=== PATIENT | male | born 1975 | race Caucasian/White ===

== ENCOUNTER → 2019-10-08 15:43 | Outpatient (CLI) | payer OTHER, SELFPAY ==
[2014-09-15 16:52] VITALS: BMI 27.2
[2019-10-08 17:48] LABS: Anion Gap 9 (5-15); BUN 15 mg/dL (7-18); BUN/Creat Ratio 11.5 RATIO (10-20); Calcium,Total 9.1 mg/dL (8.5-10.1); Chloride 103 mmol/L (98-107); Cholesterol 251 mg/dL (200); Creatinine, Serum 1.31 mg/dL (0.70-1.30); EST Glomerular Filtration Rate 63 mL/min (>60); Est Glom Filt Rate - Afr Amer 77 mL/min (>60); Glucose 66 mg/dL (74-106); High Density Lipoprotein 38 mg/dL; Potassium 3.9 mmol/L (3.5-5.1); Sodium Level 141 mmol/L (136-145); Triglycerides 177 mg/dL; Very Low Density Lipoprotein 35 mg/dL (5-40)
== END ==
PROVIDERS: Family Provider Family Medicine; PCP Family Medicine; Referring Provider Family Medicine; Visit Provider Family Medicine
DX: Z00.00 Encounter for general adult medical examination without abnormal findings (principal)
CPT/HCPCS: 36415; 80048; 80061

== ENCOUNTER 2024-12-02 23:52 | Emergency (ER) | payer OTHER, SELFPAY ==
[2024-12-02 23:53] VITALS: BP 175/108; PULSE 69; RESP 16; TEMP 36.5; O2SAT 99; BMI 31.0
[2024-12-03] VITALS (11 sets, daily range): BP systolic 130–168; BP diastolic 82–103; PULSE 51–66; RESP 11–22; TEMP 36.5; O2SAT 97
--- NOTE | 2024-12-03 00:08 | EKG12_ITS ---
Test Reason : CP Blood Pressure : */* mmHG Vent. Rate : 71 BPM Atrial Rate : 71 BPM P-R Int : 174 ms QRS Dur : 116 ms QT Int : 416 ms P-R-T Axes : 43 89 32 degrees QTcB Int : 452 ms Sinus rhythm with occasional Premature ventricular complexes Otherwise normal ECG Confirmed by Juan Diego Johnson ([id number]), editor continuity and script FRANCIE PRECIADO ([id number]) on 12/03/2024 1:30:11 PM Referred By: Confirmed By: Juan Diego Johnson
--- NOTE | 2024-12-03 00:08 | RAD_ITS ---
EXAM: XR CHEST, 1 VIEW CLINICAL INDICATION: chest pain TECHNIQUE: Frontal view of the chest. COMPARISON: No relevant prior studies available. FINDINGS: LUNGS AND PLEURAL SPACES: Unremarkable. No consolidation or edema. No pneumothorax. No effusion. HEART: Unremarkable. Cardiac silhouette not enlarged. MEDIASTINUM: Central airways and mediastinal contour are unremarkable. BONES/JOINTS: Unremarkable. No acute fracture. SOFT TISSUES: Unremarkable. RAD/Chest 1 View (Portable) IMPRESSION: No radiographic evidence of acute cardiopulmonary disease. Electronically Signed: Michael Dowling MD at 0:49 EST ,
--- NOTE | 2024-12-03 00:09 | EDS_ITS ---
HPI History of Present Illness Chief Complaint: Chest Pain Informant: patient Narrative Narrative: 49-year-old male presenting to the emergency department with chief complaint of chest discomfort. Patient states that last night when he went to lay down began to feel discomfort in his chest like his heart was beating stronger than normal that radiated up towards his neck. He felt flushed. He did not notice it throughout the day but he noticed it again this evening. Denies any arm or leg symptoms. He notes that on Monday he felt generally fatigued. 1 to 2 weeks ago he went played tennis with his daughter did not feel any change in exercise tolerance or symptomology then. He states he scheduled a physical with a new primary care doctor for the end of November as he has not had one for a while. He states he had blood work done for life insurance earlier this past summer and wonders if they told him that his cholesterol is high but he is not sure. He did not feel that it was indigestion but he tried some Tums anyway. PFSH PFSH Medical History no medical history Allergy/AdvReac Type Severity Reaction Status Date / Time No Known Allergies Allergy Verified 12/02/24 23:57 Social History Smoking Status: Never smoker ROS ROS ED Constitutional Constitutional ED: Denies chills, fever(s) or weight loss Eyes Eyes: Denies change in vision or diplopia ENT ENT ED: Denies ear pain, rhinorrhea or sore throat Cardiovascular Cardiovascular: Reports chest pain and palpitations; Denies orthopnea or racing heartbeat Respiratory/Chest Respiratory/Chest: Denies cough, dyspnea or orthopnea Gastrointestinal Gastrointestinal: Denies abdominal pain, diarrhea, nausea or vomiting Genitourinary Genitourinary ED: Denies dysuria, hematuria or urinary frequency Musculoskeletal Musculoskeletal: Denies arthralgias or myalgias Integumentary Denies abscess or rash Neurologic Neurologic: Denies headache(s) or weakness Psychiatric Psychiatric: Denies anxiety, depression, suicidal ideation or suicidal thoughts Endocrine Endocrinology: Denies polydipsia, polyphagia or polyuria Allergic/Immunologic Allergic/Immunologic ED: Denies mouth swelling, tongue swelling or urticaria EXAM Physical Exam Const Vital Signs: 12/02/24 23:53 12/02/24 23:55 12/03/24 00:08 Temperature 97.7 F L Temperature Source Oral Pulse Rate 69 64 Respiratory Rate 16 17 Respiratory Effort Normal Non-Labored Blood Pressure 175/108 H Blood Pressure Mean 130 Pulse Ox 99 Oxygen Delivery Method Room Air 12/03/24 00:15 12/03/24 00:30 12/03/24 00:45 Temperature Temperature Source Pulse Rate 66 65 61 Respiratory Rate 14 11 L 17 Respiratory Effort Blood Pressure 146/103 H 133/98 H 143/88 H Blood Pressure Mean 116 108 103 Pulse Ox Oxygen Delivery Method 12/03/24 01:00 12/03/24 01:15 12/03/24 01:30 Temperature Temperature Source Pulse Rate 63 65 55 L Respiratory Rate 15 19 H 15 Respiratory Effort Blood Pressure 130/84 H 136/99 H 149/93 H Blood Pressure Mean 97 112 111 Pulse Ox Oxygen Delivery Method 12/03/24 01:45 12/03/24 02:00 12/03/24 03:00 Temperature Temperature Source Pulse Rate 53 L 56 L 53 L Respiratory Rate 18 22 H 19 H Respiratory Effort Blood Pressure 135/86 H 168/90 H 153/82 H Blood Pressure Mean 101 111 105 Pulse Ox Oxygen Delivery Method Room Air Positive well nourished and well developed General Appearance ED: well developed and NAD HEENT Reports normocephalic, head/scalp atraumatic and moist mucous membranes Eyes PERRL and EOMs intact bilaterally Neck no lymphadenopathy, supple and no JVD Resp normal respiratory effort and clear to auscultation bilaterally Cardio regular rate, regular rhythm and no murmurs GI normal to inspection, nondistended, normoactive bowel sounds and non-tender Palpation: soft Back/Spine no CVA tenderness and normal ROM Extremity normal to inspection General Extremety ED: Negative for edema General Extremity: Negative for edema Neuro oriented x3 and CN's II-XII intact bilaterally Sensorium / Orientation: alert Motor Exam: strength 5/5 throughout Psych mental status grossly normal Mood & Affect: Negative for depressed or tearful Skin no rashes or lesions noted and no wounds Heart Score History: Slightly/Non-Suspicious ECG: Normal Age: >45 - <65 years Risk Factors: No Risk Factors Troponin: </= Normal Limit Score: 1 MDM MDM MDM Narrative Medical decision making narrative: Differential diagnosis includes cardiac dysrhythmia acute coronary syndrome pulmonary embolism aortic dissection electrolyte abnormalities anxiety hypertension My independent interpretation of the chest x-ray is no acute process. White count 8.1 hemoglobin 15.8 platelet count of 295. D-dimer normal 0.27 initial troponin is 8. Creatinine 1.1 a BUN of 19 glucose 127. A delta troponin was obtained. This was 7. Patient's heart score is 1. Patient has had no events on the monitor. He does have the occasional PVC. His blood pressure currently 143/80. I do not feel that we can get him a diagnosis of hypertension at this time. He does not normally check it and he has a great deal of anxiety regarding this visit at this time. Unguinal recommend that he monitor his blood pressure over the next couple weeks and follow-up with his primary care appointment later this month. History & Record Review Discussion w/independent historian: Patient Lab Data Attestation: I reviewed the patient's lab results. Labs: Laboratory Results - last 24 hr 12/02/24 12/03/24 23:58 02:30 WBC 8.1 RBC 5.44 Hgb 15.8 Hct 46.7 MCV 85.8 MCH 29.0 MCHC 33.8 RDW Std Deviation 38.5 RDW Coeff of Alethea 12.3 Plt Count 295 MPV 10.3 Immature Gran % (Auto) 0.100 Neut % (Auto) 59.2 Lymph % (Auto) 30.0 Hall % (Auto) 7.9 Eos % (Auto) 2.2 Baso % (Auto) 0.6 Absolute Neuts (auto) 4.8 Absolute Lymphs (auto) 2.44 Nucleated RBC % 0 D-Dimer Quant (PE/DVT) 0.27 Sodium 140 Potassium 3.6 Chloride 106 Carbon Dioxide 28.0 Anion Gap 6 BUN 19 H Creatinine 1.18 Estim Creat Clear Calc 109.35 Est GFR (MDRD) Af Amer 84 Est GFR (MDRD) Non-Af 70 BUN/Creatinine Ratio 16.1 Glucose 127 H Calcium 9.4 Troponin I High Sens 8 7 Radiography Diagnostic Testing: Clinical Impression(s) from Imaging Studies Chest X-Ray 12/03/24 00:08 IMPRESSION: No radiographic evidence of acute cardiopulmonary disease. Electronically Signed: Michael Dowling MD at 0:49 EST , EKG Initial EKG: Attestation: I personally reviewed and interpreted this EKG as follows: Comments: Sinus rhythm with a ventricular rate of 71 bpm. PVC noted. Discharge Plan Triage Chief Complaint: Chest Pain ED Provider: Mao Thornton Dx/Rx/DC Orders Clinical Impression: Chest pain, Elevated blood pressure reading Instructions: ED Chest Pain, Noncardiac, ED Hypertension, To Be Confirmed Primary Care Provider: Todd Burton Referrals: Todd Burton MD [Primary Care Provider] - Keep Desiree appointment Activity Restrictions/Additional Instructions: I would recommend that you check your blood pressure several times before seeing your primary care doctor so they can help you evaluate whether or not you have hypertension. I am not seeing any evidence of a heart attack at this time. You have no cardiac dysrhythmias noted on the monitor. Please follow-up with your doctor regarding your symptoms Print Language: Portuguese Disposition Disposition: Home, Self Care
[2024-12-03] MEDS: Aspirin 81 MG TAB.CHEW 324 MG PO (00:14)
[2024-12-03 00:22] LABS: Absolute Lymphocyte Count 2.44 X10^3/uL (0.83-4.51); Absolute Neutrophil Count 4.8 X10^3/uL (2.0-7.7); Basophil# 0.05 X10^3/uL; Basophil% 0.6 % (0-1); Eosinophil# 0.18 X10^3/uL; Eosinophils% 2.2 % (0-5); Hematocrit 46.7 % (40-54); Hemoglobin 15.8 g/dL (13.0-16.5); Lymphocyte # 2.44 X10^3/ul (0.83-4.51); Mean Corp Hgb Conc 33.8 g/dL (32-36); Mean Corpuscular Volume 85.8 fL (80-94); Mean Platelet Vol. 10.3 fl (6.2-12.0); Monocyte# 0.64 X10^3/uL; Monocyte% 7.9 % (0-10); NRBC Flagged by Analyzer 0 % (0-5); Neutrophil % 59.2 % (47-70); Platelet Count 295 K/mm3 (150-450); RBC Distribution Width CV 12.3 % (11.6-14.6); RBC Distribution Width SD 38.5 fl (35.1-43.9); Red Blood Count 5.44 M/mm3 (4.6-6.2); White Blood Count 8.1 K/mm3 (4.4-11.0)
[2024-12-03 00:45] LABS: D-Dimer Quantitative (DVT/PE) 0.27 FEU/ug/m (0.27-0.49)
[2024-12-03 00:52] LABS: Anion Gap 6 (5-15); BUN 19 mg/dL (7-18); BUN/Creat Ratio 16.1 RATIO (10-20); Calcium,Total 9.4 mg/dL (8.5-10.1); Chloride 106 mmol/L (98-107); Creatinine, Serum 1.18 mg/dL (0.70-1.30); EST Glomerular Filtration Rate 70 mL/min (>60); Est Glom Filt Rate - Afr Amer 84 mL/min (>60); Estimated Creatinine Clearance 109.35 ml/min; Glucose 127 mg/dL (74-106); Potassium 3.6 mmol/L (3.5-5.1); Sodium Level 140 mmol/L (136-145); Troponin-I HS (w/2H Reflex) 8 pg/mL (3.0-78.0)
--- NOTE | 2024-12-03 00:54 | ED.RN ---
no old ekg
[2024-12-03 02:27] LABS: Reflex Troponin-HS? (from REC) Y
[2024-12-03 03:05] LABS: Troponin-I HS 7 pg/mL (3.0-78.0)
== END 2024-12-03 03:21 | disposition home or self-care (01) ==
PROVIDERS: Emergency Provider Emergency Medicine; PCP Family Medicine; Visit Provider Emergency Medicine
DX: R07.9 Chest pain, unspecified (principal); R03.0 Elevated blood-pressure reading, without diagnosis of hypertension
CPT/HCPCS: 71045; 80048; 84484; 85025; 85379; 93005; 99284; A4216

== ENCOUNTER → 2025-01-03 | Outpatient (CLI) | payer OTHER, SELFPAY ==
[2025-01-03 10:35] LABS: Vitamin D,25 Hydroxy 27.1 ng/mL
== END | disposition home or self-care (01) ==
LOC: MTLAB 07:45
PROVIDERS: PCP Family Medicine; Referring Provider Family Medicine; Visit Provider Family Medicine
DX: R53.83 Other fatigue (principal)
CPT/HCPCS: 36415; 82306

== ENCOUNTER → 2025-06-25 | Outpatient (CLI) | payer OTHER, SELFPAY ==
[2025-06-25 11:47] LABS: Cholesterol 243 mg/dL (<=200); Low Density Lipoprotein Calc. 186 mg/dL; PSA,Total - Annual Screen 0.68 ng/mL (0.02-4.00); Triglycerides 95 mg/dL; Very Low Density Lipoprotein 19 mg/dL (5-40); Vitamin D,25 Hydroxy 37.0 ng/mL (30-100); cholesterol:hdl ratio screen 6.38
== END | disposition home or self-care (01) ==
PROVIDERS: PCP Family Medicine; Referring Provider Family Medicine; Visit Provider Family Medicine
DX: Z13.1 Encounter for screening for diabetes mellitus (principal); Z12.11 Encounter for screening for malignant neoplasm of colon; R53.83 Other fatigue; Z12.5 Encounter for screening for malignant neoplasm of prostate; Z13.220 Encounter for screening for lipoid disorders
CPT/HCPCS: 36415; 80061; 82306; 83036; 84153; G0103